=== PATIENT | male | born 1985 ===

== ENCOUNTER 2016-08-26 23:59 | Emergency (ER) | payer SELFPAY ==
[2016-08-27 00:18] LABS: URINE BILIRUBIN NEGATIVE (NEGATIVE); URINE BLOOD 2+ (NEGATIVE); URINE GLUCOSE (UA) NEGATIVE (NEGATIVE); URINE LEUKOCYTE ESTERASE NEGATIVE (NEGATIVE); URINE NITRITE NEGATIVE (NEGATIVE); URINE PROTEIN TRACE (NEGATIVE); URINE UROBILINOGEN NORMAL (0-1 mg/dl)
[2016-08-27 00:20] LABS: URINE APPEARANCE CLEAR; URINE COLOR YELLOW
[2016-08-27 00:23] LABS: URINE BACTERIA 0; URINE EPITHELIAL CELLS FEW /hpf; URINE WBC NEG /hpf
[2016-08-27] MEDS ORDERED: KETOROLAC TROMETHAMINE 15 MG/ML VIAL ONE (00:34)
[2016-08-27] MEDS ORDERED: MORPHINE SULFATE 4 MG/ML SYRINGE ONE (00:34)
[2016-08-27] MEDS ORDERED: MORPHINE SULFATE 2 MG/ML SYRINGE ONE (00:34)
[2016-08-27] MEDS ORDERED: PROCHLORPERAZINE 5 MG/ML 2 ML VIAL ONE (00:34)
[2016-08-27] MEDS ORDERED: HYDROCODONE/ACETAMINOPHEN 5/325MG TABLET ONE (01:55)
--- NOTE | 2016-08-27 08:25 | CT ---
Exam Type: ABD/PELVIS W/O CON Date and Time: 08/27/2016 12:34 AM Clinical information: Left flank pain. Comparison: None Procedure: Imaging device: [employer] Aquilion [address] scanner 1 mm axial images were obtained through the abdomen and pelvis. Stacked reconstructed 3, 4 and 5 mm images were photographed in the axial coronal and sagittal planes. No oral contrast was utilized for this examination. Exam: Without intravenous contrast. FINDINGS: Lung bases:The visualized lung bases appear to be appropriate with no mass, effusion or consolidation visualized. Liver: the liver is homogeneous with no discrete abnormality visualized. No definite findings of biliary dilatation are observed. Spleen: The spleen is homogeneous and does not appear to be enlarged. Gallbladder: Normal without enlargement or evidence of adjacent inflammatory changes. Pancreas: Normal without enlargement or evidence of adjacent inflammatory changes. Adrenal glands: Normal without enlargement or evidence of adjacent inflammatory changes. Abdominal aorta: The aorta is of normal caliber and appears to be without significant atherosclerotic disease. Kidneys: There are bilateral intrarenal calculi identified with at least 2 seen on the left, at least 3 on the right. There is mild left-sided hydronephrosis and hydroureter with a 4.7 mm calculus identified within the distal left ureter on image 119, just proximal to the ureteral vesicular junction. Bowel structures: The visualized bowel is of normal caliber without evidence of dilatation or obstruction. No free fluid or mesenteric inflammatory changes are identified. Appendix: The appendix is well-visualized and appears to be of normal caliber. No periappendiceal inflammatory changes or CT findings of appendicitis are currently observed. Bladder: Decompressed. Hernia: There is a fat filled umbilical hernia identified. Adenopathy: A few nonenlarged central and right lower quadrant mesenteric lymph nodes are visualized. Osseous structures: There is evidence of bilateral spondylolysis of L5 with slight anterolisthesis of L5 on S1. Pelvic structures: No discrete pelvic abnormalities are visualized in this examination. IMPRESSION: 1. Bilateral intrarenal calculi with a 4.7 mm calculus identified within the distal left ureter just proximal to the ureterovesicular junction with mild associated left-sided hydronephrosis. 2. A normal appearance of the appendix without CT evidence of appendicitis. 3. A small fat filled umbilical hernia. 4. Bilateral spondylolysis of L5 with slight anterolisthesis of L5 on S1. The findings were called to the emergency room at 0134 hours, 08/27/2016, by [facility].
== END 2016-08-27 02:31 | disposition home or self-care (01) ==
LOC: ED 23:59
DX: N20.0 Calculus of kidney (principal)
CPT/HCPCS: 81001; 74176; 96375 ×2; 99283 ×2; 96374; J0780; J2270 ×2; J1885; A9270